=== PATIENT | female | born 1945 | race Caucasian/White ===

== ENCOUNTER 2019-11-02 21:33 | Emergency (ER) | payer MEDICARE, OTHER ==
[~2019-11-02] VITALS: Ht 167.6 cm; Wt 72.6 kg
[2019-11-02 22:22] LABS: BILIRUBIN,URINE NEGATIVE (NEGATIVE); UROBILINOGEN,URINE NORMAL (NEGATIVE)
[2019-11-02 22:34] LABS: APPEARANCE,URINE CLOUDY (CLEAR); UA COLOR STRAW (YELLOW)
[2019-11-02 23:58] VITALS: BP 163/78
--- NOTE | 2019-11-03 00:08 | NUR ---
UPDATE EDP NOTIFIED OF PATIENT COMPLAINTS, VS, AND ASSESSMENT
[2019-11-03 01:55] LABS: BASOPHIL # 0.1 10^3/uL (0.0-0.1); BASOPHIL % 0.7 % (0.0-0.2); EOSINOPHIL # 0.4 10^3/uL (0.0-0.2); HEMOGLOBIN 13.5 g/dL (12.0-15.0); LYMPHOCYTES # 2.4 10^3/uL (1.0-4.8); MEAN CELL HGB 31.5 pg (26-34); MEAN CELL HGB CONCENTRATION 33.5 g/dL (33-37); MEAN CORP VOLUME 94.2 fL (78-100); MEAN PLATELET VOLUME 10.2 fL (7.8-11.0); MONOCYTES # 0.9 10^3/uL (0.3-0.8); MONOCYTES % 9.2 % (5.0-12.0); NEUTROPHIL # 6.1 10^3/uL (1.8-7.7); NEUTROPHILS % 61.6 % (41.0-85.0); RED CELL DISTRIBUTION WIDTH 13.2 % (11.5-14.5); WHITE BLOOD CELL 9.9 10^3/uL (4.5-11.0)
[2019-11-03 01:59] LABS: CALCIUM 10.8 mg/dL (8.4-10.5); CARBON DIOXIDE 24.3 mmol/L (20.0-32)
[2019-11-03] MEDS ORDERED: CIPRO PO STA (02:16)
[2019-11-03] MEDS ORDERED: CIPRO ONE (02:19)
--- NOTE | 2019-11-03 02:21 | ER.PDOC ---
General Chief Complaint: Female Urogenital Problems Stated Complaint: POSS UTI Time seen by MD: 00:15 Source: patient Exam Limitations: no limitations History of Present Illness Initial Comments Possible UTI, burning with urination for past few days. No abdominal pain. Patient has a history of recurrent UTI. No fever or chills. Severity/Quality: moderate Associated Symptoms: dysuria Past Medical History Medical History: high cholesterol, hypertension Surgical History: no surgical history Social History Alcohol Use: none Drug Use: none Review of Systems Constitutional: no symptoms reported EENTM: no symptoms reported Respiratory: no symptoms reported Cardiovascular: no symptoms reported Genitourinary: see HPI All Other Systems: Reviewed and Negative Physical Exam General Appearance: No Apparent Distress, WD/WN Neck: nml inspection, non-tender Cardiovascular/Respiratory: Regular Rate, Rhythm, No M/R/G, Normal Peripheral Pulses, No JVD, Normal Breath Sounds, No Respiratory Distress Abdomen: Normal Bowel Sounds, Non Tender, Soft, No Organomegaly, No Pulsatile Mass Back: nml inspection Extremities: Normal Range of Motion, Non-Tender, Normal Inspection, No Pedal Edema, No Calf Tenderness, Normal Capillary Refill Neurologic/Psychiatric: general dentist II-XII NML as Tested, No Motor/Sensory Deficits, Alert, Normal Mood/Affect, Oriented x 3 Skin: Normal Color, Warm/Dry Results/Orders Results/Orders Orders - EDGAR THAPA MD Urinalysis (11/02/19 22:14) Urine Culture (11/02/19 21:55) Cbc With Auto Diff (11/03/19 01:25) Basic Metabolic Panel (11/03/19 01:25) Ciprofloxacin Hcl (Cipro) (11/03/19 02:16) Vital Signs Date Time Temp Pulse Resp B/P (MAP) Pulse Ox O2 Delivery O2 Flow Rate FiO2 11/02/19 23:58 98.2 79 18 95 11/02/19 23:58 98.2 79 18 163/78 (106) 95 Room Air 11/02/19 23:58 98.2 79 18 Laboratory Tests Test 11/02/19 21:55 11/03/19 01:30 Urine Collection Type CCMS Urine Color STRAW (YELLOW) Urine Appearance CLOUDY (CLEAR) H Urine Bilirubin NEGATIVE MG/DL (NEGATIVE) Urine Ketones NEGATIVE (NEGATIVE) Urine Specific [place] 1.015 (1.005-1.035) Urine pH 6 (5.0-6.0) Urine Protein NEGATIVE (NEGATIVE) Urine Urobilinogen NORMAL (NEGATIVE) Urine Nitrate NEGATIVE (NEGATIVE) Urine Leukocyte Esterase 500/uL 2+ (NEGATIVE) Urine Blood NEGATIVE (NEGATIVE) Urine RBC NONE SEEN RBC/HPF (NONE Urine WBC 5-10 WBC/HPF (0-2) H Urine Squamous Epithelial Cells RARE #/HPF (FEW) Urine Bacteria MANY (NONE SEEN) H Urine Glucose NORMAL (NEGATIVE) White Blood Count 9.9 10^3/uL (4.5-11.0) Red Blood Count 4.28 10^6/uL (4.00-5.20) Hemoglobin 13.5 g/dL (12.0-15.0) Hematocrit 40.3 % (36.0-46.0) Mean Corpuscular Volume 94.2 fL (78-100) Mean Corpuscular Hemoglobin 31.5 pg (26-34) Mean Corpuscular Hemoglobin Concent 33.5 g/dL (33-37) Red Cell Distribution Width 13.2 % (11.5-14.5) Platelet Count 353 10^3/uL (150-400) Mean Platelet Volume 10.2 fL (7.8-11.0) Neutrophils (%) (Auto) 61.6 % (41.0-85.0) Lymphocytes (%) (Auto) 24.0 % (24.0-44.0) Monocytes (%) (Auto) 9.2 % (5.0-12.0) Neutrophils # (Auto) 6.1 10^3/uL (1.8-7.7) Lymphocytes # (Auto) 2.4 10^3/uL (1.0-4.8) Monocytes # (Auto) 0.9 10^3/uL (0.3-0.8) H Absolute Immature Granulocyte (auto 0.05 10^3 u/L (0-2) Immature Granulocytes % 0.50 % (0.00-0.50) Eosinophils % 4.0 % (0.0-5.0) Basophils % 0.7 % (0.0-0.2) H Basophils # 0.1 10^3/uL (0.0-0.1) Eosinophil Count 0.4 10^3/uL (0.0-0.2) H Sodium Level 132 mmol/L (132-145) Potassium Level 4.3 mmol/L (3.6-5.2) Chloride Level 98.0 mmol/L (96-109) Carbon Dioxide Level 24.3 mmol/L (20.0-32) Glucose Level 112 mg/dL (70-110) H Blood Urea Nitrogen 24 mg/dL (7-18) H Creatinine 1.34 mg/dL (0.59-1.40) Calcium Level 10.8 mg/dL (8.4-10.5) H Anion Gap 14.0 Estimated GFR () 46.9 (>/=60) BUN/Creatinine Ratio 17.0 Departure Time of Disposition: 02:19 Disposition: 01 HOME, SELF-CARE Impression: Primary Impression: UTI (urinary tract infection) Condition: Stable Referrals: VADIM NIEVES MD (PCP) PRIMARY CARE PROVIDER Additional Instructions: Cipro F/U with your PCP in 2-3 days Return to ED if worsening symptoms or concerns. Duration or Time Spent with Pa: 20 mins Problem Qualifiers Primary Impression: UTI (urinary tract infection) Urinary tract infection type: site unspecified Hematuria presence: without hematuria Qualified Codes: N39.0 - Urinary tract infection, site not specified EDGAR THAPA MD Nov 03, 2019 02:21
== END 2019-11-03 02:30 | disposition home or self-care (01) ==
LOC: ER 21:33
DX: N39.0 Urinary tract infection, site not specified (principal); I10 Essential (primary) hypertension; E78.00 Pure hypercholesterolemia, unspecified; Z87.440 Personal history of urinary (tract) infections
CPT/HCPCS: 36415; 80048; 81000; 85025; 87077; 87086; 87186; 99284

== ENCOUNTER → 2020-10-26 | Outpatient (CLI) | payer MEDICARE, OTHER ==
[2020-10-26 14:27] LABS: BASOPHIL % 0.6 % (0.0-0.2); EOSINOPHIL % 0.8 % (0.0-5.0); LYMPHOCYTES # 0.95 10^3/uL1 (1.0-4.8); MEAN CORP HGB 31.1 pg (26-34); MONOCYTES # 0.6 10^3/uL (0.3-0.8); MONOCYTES % 13.5 % (5.0-12.0); NEUTROPHIL # 3.1 10^3/uL (1.8-7.7); NEUTROPHILS % 64.7 % (41.0-85.0); PLATELET COUNT 191 10^3/uL (150-400); RED CELL DISTRIBUTION WIDTH 13.1 % (11.5-14.5)
[2020-10-26 15:15] LABS: ALANINE AMINOTRANSFERASE(ML) 32 U/L (12-78); ALKALINE PHOSPHATASE 80 U/L (50-136); ASPARTATE AMINO TRANSFERASE 66 U/L (0-35); CALCIUM 9.4 mg/dL (8.4-10.5); GLUCOSE 79 mg/dL (70-110)
== END | disposition home or self-care (01) ==
LOC: LAB 14:09
PROVIDERS: ATTEND Specialist
DX: E11.9 Type 2 diabetes mellitus without complications (principal); R05 Cough; R50.9 Fever, unspecified
CPT/HCPCS: 36415; 80053; 82728; 83036; 83615; 84145; 84484; 85025; 86140

== ENCOUNTER 2020-12-04 11:09 | Inpatient (IN) | payer MEDICARE, OTHER ==
[~2020-12-04] VITALS: Ht 167.6 cm; Wt 72.1 kg
[2020-12-04] VITALS (40 sets, daily range): BP systolic 64–158; BP diastolic 30–97
[~2020-12-04 11:09] MED LIST: ALLO100T PO; APIX2.5T PO; ASCO500T5 PO; CHOL500045 PO; DEXA4TAB PO; FENO145T PO; HNS 1000ML 1,000 ML ONE; LEVO25TA4 PO; LOSA50TA2 PO; Magnesium Oxide PO; NS 1000ML 1,000 ML ONE; NS 250ML 250 ML IV ONE; ROSU10TA2 PO; VALIUM PO ONE; VANCOMYCIN HCL 1 GM ONE; ZINC220C7 PO
--- NOTE | 2020-12-04 11:31 | PCM.EKG ---
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
[2020-12-04] MEDS: NS 1000ML 1,000 ML IV SCH ×2 (11:40→15:10)
[2020-12-04] MEDS ORDERED: GLIM2TAB7 PO (11:48)
[2020-12-04] MEDS ORDERED: ICOS1CAP PO (11:48)
[2020-12-04] MEDS ORDERED: PANT40TA6 PO (11:48)
[2020-12-04] MEDS ORDERED: ROSU20TA2 PO (11:48)
[2020-12-04] MEDS ORDERED: LOSA1TAB25 PO (11:48)
[2020-12-04] MEDS ORDERED: ALLO100T PO (11:48)
[2020-12-04] MEDS ORDERED: MAGN400T9 PO (11:48)
[2020-12-04] MEDS ORDERED: CYAN-26 PO (11:48)
[2020-12-04] MEDS ORDERED: AMLO-169 PO (11:48)
[2020-12-04] MEDS ORDERED: ACET500T73 PO (11:48)
[2020-12-04] MEDS ORDERED: METF500T17 PO (11:48)
[2020-12-04] MEDS ORDERED: ASPI-667 PO (11:48)
[2020-12-04] MEDS ORDERED: METO25TA4 PO (11:48)
[2020-12-04] MEDS ORDERED: UBID100C23 PO (11:48)
--- NOTE | 2020-12-04 11:49 | HPH ---
ADMIT DATE: 12/04/2020 CHIEF COMPLAINT: Recurrent dizziness, syncope, occasional palpitation, underlying sick sinus syndrome and AV rachelle block. HISTORY OF PRESENT ILLNESS: The patient is a 75-year-old white female who has underlying history of hypertension, hypothyroidism, non-insulin dependent diabetes mellitus and she has seen a automotive detailer in [place] over 6-8 weeks ago and she was told that she needed a pacemaker because of Holter monitoring manifestations of symptomatic bradycardia and has sick sinus syndrome with underlying intermittent junctional rhythm and SA Wenckebach and then subsequently she developed COVID pneumonia and was in the hospital and in the hospital, she was manifesting similar bradycardia and now she is over the COVID quarantine. Came for a myocardial perfusion scan on 12/03/2020 and during the procedure, she showed initially sinus bradycardia, SA Wenckebach and then went into complete AV dissociation with accelerated AV junctional rhythm with a rate of 70-75 and she became very symptomatic and dizzy and lightheaded and this is the way she has felt in the past. Actually even in the recovery phase, she stayed in junctional rhythm. Hence, in view of her manifestations suggestive of symptomatic sick sinus syndrome and AV rachelle disease with accelerated junctional rhythm, the patient was advised to have a pacer because of symptomatic status. She has moderately severe hypertension and diabetes. ALLERGIES: None known. MEDICATIONS: She is on metoprolol 25 mg once a day, amlodipine 5 mg once a day, losartan/hydrochlorothiazide 100/12.5 one tablet daily, zinc 220 mg once a day, vitamin D3 2000 units daily, vitamin C 1 gram daily, Vascepa 2 grams daily, glimepiride 2 mg once a day, magnesium oxide 400 mg 1 tablet twice a day, Protonix 40 mg once a day, Levothroid 25 mcg once a day, Crestor 10 mg once a day, allopurinol 100 mg once a day, metformin 500 mg twice a day. 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 See my office note for the details. SOCIAL HISTORY: Nonsmoker, no ethanol abuse. FAMILY HISTORY: Mother had heart trouble bypass and stroke. Father is hypertensive. PAST SURGICAL HISTORY: Hysterectomy, bladder suspension operation, cholecystectomy for a large stone in 03/2018. REVIEW OF SYSTEMS: Dizziness, lightheadedness, near syncopal episodes on multiple occasions, recent COVID manifestations with shortness of breath and went to home on oxygen and she has not been using oxygen now and the saturation is normal. PHYSICAL EXAMINATION: GENERAL: She is alert, awake, oriented. VITAL SIGNS: Temperature 97, 140/80 blood pressure, pulse was 47-50, respirations 18, 5 feet 6 inches, 156 pounds, BMI of 25.2. Saturation was 93% on room air. HEENT: Unremarkable. NECK: No JVD. Right carotid bruit. Upstroke was normal. LUNGS: Clear. HEART: Sounds normal. ABDOMEN: Soft, nontender, no organomegaly. EXTREMITIES: Distal pulses fairly well felt. NEUROLOGIC: Intact. IMAGING STUDIES: EKG: Regular sinus rhythm, which was done in the office earlier on 11/30/2020 and had left bundle branch block and nonspecific ST-T wave changes. IMPRESSION: Symptomatic sick sinus syndrome, AV rachelle disease, accelerated junctional rhythm, hypertension, diabetes. PLAN: At this time, cardiac DDD pacer inserted today. We will admit her in ICU after the pacer. Kalyn Armstrong MD DR: WESTLEY/krunal JOB# [id number]
[2020-12-04 11:51] LABS: BASOPHIL # 0.1 10^3/uL (0.0-0.1); EOSINOPHIL # 0.4 10^3/uL (0.0-0.2); EOSINOPHIL % 4.5 % (0.0-5.0); LYMPHOCYTES # 2.04 10^3/uL1 (1.0-4.8); MEAN CORP HGB 31.1 pg (26-34); MONOCYTES # 0.9 10^3/uL (0.3-0.8); MONOCYTES % 9.5 % (5.0-12.0); NEUTROPHIL # 5.7 10^3/uL (1.8-7.7); PLATELET COUNT 362 10^3/uL (150-400); RED CELL DISTRIBUTION WIDTH 13.4 % (11.5-14.5)
[2020-12-04] MEDS ORDERED: LIDOCAINE 2% VIAL ONE ×2 (12:54→13:03)
[2020-12-04] MEDS ORDERED: ZOFRAN ONE ×2 (12:54→15:53)
[2020-12-04] MEDS ORDERED: PEPCID IV ONE (12:54)
[2020-12-04] MEDS ORDERED: SUBLIMAZE ONE (12:55)
[2020-12-04] MEDS ORDERED: DECADRON ONE (12:55)
[2020-12-04] MEDS ORDERED: VERSED ONE (12:55)
[2020-12-04] MEDS ORDERED: KETAMINE HCL-Non-Preferred ONE (12:55)
[2020-12-04] MEDS ORDERED: DIPRIVAN IV ONE (12:55)
[2020-12-04] MEDS ORDERED: EPHEDRINE SULFATE ONE (12:56)
[2020-12-04] MEDS ORDERED: HNS 1000ML 1,000 ML IV SCH (13:00)
[2020-12-04] MEDS ORDERED: VANCOMYCIN HCL 1 GM in NS 250ML 250 ML IV ONE (13:00)
[2020-12-04] MEDS ORDERED: SODIUM CHLORIDE IRR BOTTLE IR ONE (13:02)
[2020-12-04] MEDS ORDERED: GENTAMICIN 80 MG/NS 100 ML PB 100 ML IV ONE (13:02)
[2020-12-04 13:07] LABS: CALCIUM 9.9 mg/dL (8.4-10.5); CARBON DIOXIDE 24.2 mmol/L (20.0-32)
[2020-12-04] MEDS ORDERED: TYLENOL PO PRN (15:00)
[2020-12-04] MEDS ORDERED: RESTORIL PO PRN (15:00)
[2020-12-04] MEDS ORDERED: NORCO 5MG PO PRN (15:00)
[2020-12-04] MEDS ORDERED: D5W-1/2 NS/KCL 20MEQ 1,000 ML IV SCH (15:00)
[2020-12-04] MEDS ORDERED: SUBLIMAZE IV PRN (15:00)
[2020-12-04] MEDS ORDERED: MAGNESIUM SULFATE 50 ML IV ONE (15:00)
--- NOTE | 2020-12-04 15:11 | DIREP ---
PROCEDURE:CHEST 1 VIEW COMPARISON:[facility], CR, XRAY CHEST SINGLE VW, 10/30/2020, 11:16 AM. [facility], CR, XRAY CHEST 2 VWS, 12/25/2018, 10:24 AM. INDICATIONS:pacemaker insertion FINDINGS: LUNGS/PLEURA:Diffuse interstitial pattern of opacity in the bilateral lungs with slight perihilar predominance. Findings may be on the basis of edema. Please correlate clinically. No focal consolidation is seen. Costophrenic angles are sharp. No pneumothorax. VASCULATURE:Mild prominence of the perihilar vasculature which may be on the basis of congestion. CARDIAC:Cardiac silhouette is top normal in size for technique. MEDIASTINUM:Midline in position. BONES:No aggressive osseous lesions. OTHER:New left upper chest cardiac pacer with subclavian approach leads terminating over the right atrium and right ventricle. CONCLUSION: 1. New left upper chest cardiac pacer with subclavian approach leads terminating over the right atrium and right ventricle. No pneumothorax. 2. Mild diffuse interstitial pattern of opacity perihilar predominance. Findings may be seen in setting of edema. Please correlate clinically. In addition there is mild prominence of the perihilar vasculature which may be on the basis of congestion. Dictated by: Ramin Hendricks MD on 12/04/2020 at 03:08 PM
[2020-12-04] MEDS ORDERED: NS 1000ML 1,000 ML ONE (15:26)
[2020-12-04] MEDS ORDERED: ZOFRAN ODT ONE (15:53)
--- NOTE | 2020-12-04 17:12 | OPH ---
DATE OF SURGERY: 12/04/2020 PERMANENT PACEMAKER REPORT A 75-year-old female. PREOPERATIVE DIAGNOSES: Sick sinus syndrome with symptomatic sinus bradycardia, SA pauses, junctional rhythm, total AV dissociation, intermittent left bundle-branch block, syncope of recurrent nature, hypertension, normal myocardial perfusion scan. POSTCATHETERIZATION DIAGNOSES: Sick sinus syndrome with symptomatic sinus bradycardia, SA pauses, junctional rhythm, total AV dissociation, intermittent left bundle-branch block, syncope of recurrent nature, hypertension, normal myocardial perfusion scan. ANESTHESIA: 2% lidocaine. PREOPERATIVE MEDICATIONS: Fentanyl 35 mcg IV and Valium 2.5 mg p.o., TIVA anesthesia during surgery. ANTIBIOTIC PROPHYLAXIS: Vancomycin 1 gram IV piggyback during the procedure. DEVICE IMPLANTED: Morgan COWAN reference #227765, serial number [id number], Biotronik device. Lead implant is right atrial preformed J passive Solia JT 45 cm, reference #533530, serial #[id number], Biotronik lead. Ventricular lead is passive tined lead Biotronik lead Solia T53, reference #960448, serial #[id number]. STIMULATION THRESHOLD: Right atrium is 2.7 millivolt P-wave, 0.4 volt threshold, 0.4 milliseconds, 653 ohms; in the ventricle, 10.3 millivolt, R-wave with 0.4 volt threshold at 0.4 milliseconds, pulse width impedance 1014 ohms. Device is programmed to DDR mode, lower rate 60, upper rate is 130, upper sense rate is 120, AV delay 180 milliseconds paced and 140 milliseconds sensed with the AV search hysteresis. Right atrium is set at 3.6 volt amplitude, right ventricle is already set at 4.8 volt amplitude at 0.4 milliseconds pulse width both in the atrium and the ventricle. Atrial sensitivity is set at 0.4 millivolts, ventricular sensitivity set at 2.5 millivolts. Atrial refractory period at 250 milliseconds. Ventricular refractory period 250 milliseconds. Sensing pacing is both in bipolar mode. NARRATION OF PROCEDURE: After premedication and complete surgical asepsis, 2% local anesthesia instilled in the left infraclavicular region and left subclavian vein was punctured percutaneously and a guidewire was passed into the right side of the heart and through the guidewire with 7-Andorran tear-off sheath was introduced and through the sheath, another guidewire was introduced and 2 separate 7-Andorran sheaths were introduced over both guidewires and the stylets were removed and ventricular and atrial leads were positioned into both sheaths and right ventricular lead was positioned in the right ventricular apex more close to the septum with a narrow QRS noted on pacing. Good radiological stability of the lead was established. Atrial lead was a preformed J passive lead, which was positioned into the right atrial appendage and good stability of the lead was established. Subsequently, a subcutaneous pocket was made in the left infraclavicular region and both leads were anchored to the base of the pocket and both leads connected to the device and hemostasis achieved. Plasma knife was used for cutting and hemostasis after both leads were anchored and they were connected to the device. Garamycin irrigation of pocket was done. No bleeding spots were noted. The pocket was closed with interrupted subcutaneous sutures, followed by application of metal bozena to the skin. The patient tolerated the procedure well and brought to ICU for initial 24-hour observation. Kalyn Armstrong MD DR: EWSTLEY/krunal JOB# [id number]
[2020-12-04] MEDS: NS 1000ML/KCL 20MEQ 1,000 ML IV SCH ×2 (18:00→22:40)
--- NOTE | 2020-12-04 18:26 | PCM.EKG ---
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
--- NOTE | 2020-12-04 18:40 | NUR ---
TELEPHONE REPORT RECEIVED FROM KEANU MARSHALL RN. ASSUMED PT CARE. PT NOTED TO BE RESTING IN BED COMFORTABLY WITH HOB LESS THAN DEGREES. Addendum: 12/05/20 at 0656 by Blu Kruger RN RN VERBAL REPORT
--- NOTE | 2020-12-04 20:00 | NUR ---
ASSESSMENT COMPLETED. PT IS ALERT AND ORIENTED AND IN GOOD SPIRITS. PT IS S/P INITIAL PACEMAKER INSERTION - 12/04/2020. INCISION TO LT UPPER CHEST COVERED WITH DRESSING THAT IS CDI. LT ARM IMMOBILIZED IN SLING. PT EDUCATED ON IMPORTANCE OF KEEPING LEFT ARM IMMOBILIZED, TO LAY ON BACK, TO KEEP HOB ELEVATED BELOW 45 DEGREES AND TO PERFORM ROM TO LOWER EXTREMITIES. PT VERBALIZED UNDERSTANDING ON ALL THE ABOVE. ALL VSS AND WNL. PT IS ON O2 VIA NC @ 2LPM. 20G IV SITE TO RT FA WITH IVF INFUSING. SITE IS PATENT WITH NO S/S OF INFILTRATION OR SWELLING. PT DENIES ANY PAIN OR NEEDS AT THIS TIME. CALL LIGHT AND TABLE WITHIN REACH. BED IN LOW POSITION, LOCKED, SIDE RAILS UP X2 AND HOB ELEVATED. WILL CONTINUE TO MONITOR.
--- NOTE | 2020-12-04 20:05 | NUR ---
TELEPHONE ORDER PER DR NIEVES FOR STAT CBC AND CMP DUE HYPOTENSION. TO RBGRECIA.
[2020-12-04] MEDS ORDERED: CRESTOR PO ONE (20:51)
[2020-12-04] MEDS ORDERED: LOPRESSER PO SCH (21:00)
[2020-12-04] MEDS ORDERED: TYLENOL PO SCH (21:00)
[2020-12-04] MEDS ORDERED: ZYLOPRIM PO SCH (21:00)
[2020-12-04] MEDS ORDERED: PROTONIX PO SCH (21:00)
[2020-12-04] MEDS ORDERED: MAG-OX PO SCH (21:00)
[2020-12-04] MEDS ORDERED: CRESTOR PO SCH (21:00)
[2020-12-04 21:11] LABS: BASOPHIL % 0.3 % (0.0-0.2); EOSINOPHIL % 0.2 % (0.0-5.0); LYMPHOCYTES # 0.69 10^3/uL1 (1.0-4.8); LYMPHOCYTES % 6.2 % (24.0-44.0); MEAN CORP HGB 31.5 pg (26-34); MONOCYTES # 0.1 10^3/uL (0.3-0.8); MONOCYTES % 0.9 % (5.0-12.0); NEUTROPHIL # 10.3 10^3/uL (1.8-7.7); NEUTROPHILS % 91.9 % (41.0-85.0); PLATELET COUNT 277 10^3/uL (150-400); RED CELL DISTRIBUTION WIDTH 13.2 % (11.5-14.5)
--- NOTE | 2020-12-04 21:23 | NUR ---
DR NIEVES AT BEDSIDE. TRUDI SUAZO AT BEDSIDE PERFORMING ECHO. PER MD TO CONTINUE PLAN OF CARE. PT DENIES ANY NEEDS OR PAIN AT THIS TIME. WILL CONTINUE TO MONITOR.
[2020-12-04 21:34] LABS: CALCIUM 9.7 mg/dL (8.4-10.5); CARBON DIOXIDE 21.1 mmol/L (20.0-32)
--- NOTE | 2020-12-04 21:40 | NUR ---
VERBAL ORDER PER DR NIEVES TO ENCOURAGE ORAL FLUID INTAKE. PT VERBALIZED UNDERSTANDING.
[2020-12-04] MEDS ORDERED: ROCEPHIN IV STA (22:07)
[2020-12-04] MEDS ORDERED: NS 100ML 100 ML IV ONE (22:20)
[2020-12-04] MEDS ORDERED: ROCEPHIN ONE (22:21)
[2020-12-04 22:27] LABS: LYMPHOCYTE 1 % (25-36); MONOCYTE 1 % (3-9); SEGMENTED NEUTROPHILS 98 % (31-76)
[2020-12-04] MEDS ORDERED: ROCEPHIN 1,000 MG in NS 100ML 100 ML IV SCH (22:30)
[2020-12-04] MEDS ORDERED: HUMALOG SQ ONE (22:30)
[2020-12-05] VITALS (47 sets, daily range): BP systolic 79–142; BP diastolic 36–75
[2020-12-05 01:30] LABS: APPEARANCE,URINE CLEAR (CLEAR); BILIRUBIN,URINE NEGATIVE (NEGATIVE); UA COLOR YELLOW (YELLOW); UROBILINOGEN,URINE 0.2 (NEGATIVE)
--- NOTE | 2020-12-05 04:01 | NUR ---
HYPOTENSIVE: PT BP NOTED TO BE HYPOTENSIVE. PT IS ASYMPTOMATIC AND REPORTS FEELING "OK". DR NIEVES NOTIFIED. NO NEW ORDERS. TO CONTINUE MONITORING PATIENT. CALL LIGHT AND TABLE WITHIN REACH. BED IN LOW POSITION, LOCKED, SIDE RAILS UPX2. WILL CONTINUE TO MONITOR.
[2020-12-05] MEDS ORDERED: LEVOTHYROXINE SODIUM PO SCH (06:30)
--- NOTE | 2020-12-05 06:43 | NUR ---
REPORT TO ONCOMING SHIFT. PT CARE RELINQUISHED.
[2020-12-05] MEDS ORDERED: ASPIRIN ONE (07:37)
[2020-12-05] MEDS ORDERED: AMARYL ONE (07:37)
[2020-12-05] MEDS ORDERED: VITAMIN D ONE (07:38)
[2020-12-05] MEDS: HUMALOG SQ SCH ×2 (08:00→12:54)
[2020-12-05] MEDS: NS 1000ML/KCL 20MEQ 1,000 ML IV SCH (08:16)
[2020-12-05] MEDS ORDERED: VITAMIN D PO SCH (09:00)
[2020-12-05] MEDS ORDERED: ASPIRIN PO SCH (09:00)
[2020-12-05] MEDS ORDERED: AMARYL PO SCH (09:00)
--- NOTE | 2020-12-05 12:07 | NUR ---
ORTHOSTATIC BP LAYING 106/74 HR 66 SITTING 121/60 STANDING 93/55 PATIENT INSTRUCTED TO BE SURE THAT SHE DANGLES/SITS FOR A LITTLE BIT WHEN CHANGING POSITIONS TO PREVENT DIZZINESS AND FALLS. PATIENT VOICED UNDERSTANDING.
--- NOTE | 2020-12-05 12:14 | NUR ---
DR. NIEVES AT BEDSIDE ASSESSING PATIENT AND DISCUSSED DISCHARGING HOME. PATIENT AND SPOUSE AGREED TO GO HOME AND F/U WITH DR. NIEVES ON MONDAY AND MONDAY OF NEXT WEEK.
[2020-12-05] MEDS ORDERED: MAGN400T9 PO (13:24)
--- NOTE | 2020-12-05 14:11 | DSH ---
DATE OF DISCHARGE: 12/05/2020 FINAL DIAGNOSES: Sick sinus syndrome, AV rachelle block with symptomatic bradycardia with a left bundle branch block, hypertension, hypertensive heart disease, non-insulin dependent diabetes mellitus, post-COVID pneumonia, residual pulmonary infiltrates and mild hypoxemia, postural hypotension, probably anesthesia related. Please refer to my history and physical to the point of my impression. HOSPITAL COURSE: The patient is a 75-year-old white female who 4 weeks ago had COVID pneumonia with hypoxemia and received remdesivir, dexamethasone and she was manifesting SA Wenckebach with sinus bradycardia and symptomatic bradycardia was noted. She has been already evaluated by [place] advice line rn over a month ago and was told that she probably requires a pacer at some point in time and subsequently she came for a Lexiscan myocardial perfusion scan in the office on 12/03/2020 and she was showing significant bradycardia, rate 45-47 with SA Wenckebach and accelerated junctional rhythm with dizziness, lightheadedness and felt very poorly and she was scheduled for DDD pacer on 12/04/2020 and she was taken to the OR and a Biotronik AV sequential device was inserted without any complications and the thresholds were excellent and this morning, threshold showed the patient had 0.3 volt threshold in the atrium and less than 1 volt in the ventricle with good impedances, stable impedances and R and P-wave sensitivity of 4 millivolts P-wave and around 10 millivolt R-wave and impedances were also stable and she has felt well, but during the night, became hypotensive and had a good urine output and not required her blood pressure medicine, probably the combination effect of anesthesia and some degree of acute kidney injury because she was slightly hypotensive in the OR, also creatinine is 1.5, magnesium was 1.4, 2 grams of magnesium IV was given, followed by magnesium 400 mg twice a day. This morning, her wound looks clean. She is feeling much better. She had postural hypotension with 120/70 blood pressure in lying position and standing position 90/50, but she ambulated well and was discharged today on Keflex 500 mg 3 times a day for 6 days along with Tylenol 1 gram twice a day if needed for pain, allopurinol 100 mg once a day, aspirin 81 mg once a day, vitamin D3 5000 units daily and vitamin B12 1000 mcg once a day, glimepiride 2 mg once a day, Levothroid 25 mcg once a day, metformin 500 mg twice a day, Protonix 40 mg once a day, Crestor 20 mg once a day and I did stop her amlodipine and Vascepa, losartan, HCT and metoprolol because her blood pressures are relatively low and she will come to the office on 12/08/2020 for wound check. Keflex will be called in. Instructions about the device given to the patient and she overall has much improved. Laxmichand MD Patti DR: WESTLEY/krunal JOB# [id number]
--- NOTE | 2020-12-05 19:05 | ECHO ---
DATE OF SERVICE: 12/05/2020 LIMITED ECHO STUDY The patient is a 75-year-old female post DDD pacer and insertion for symptomatic bradycardia with sick sinus syndrome and heart block and underlying left bundle branch block and post-device insertion had hypotension, was documented at 70/40. Emergency echo was done to make sure that she does not have any pericardial effusion to suggest possibility of perforation and the patient's study was of suboptimal study, mostly done from substernal view and she was lying flat in bed and clinically she was stable except of relative low blood pressure. She was warm and dry, but based on the limited study, there was no evidence of any pericardial effusion. Anterior echo free space is noted, which is probably related to fat pad, but the left ventricle appeared to be normal with left ventricular hypertrophy, septum thicker than the posterior wall. Overall, left ventricular contractility was intact with 70% ejection fraction. Right ventricle was normal in size. Aorta appears to be normal with adequate opening of the aortic valve and mitral valve and left atrium is mildly enlarged and ejection fraction of at least 70%. Hence, there was no evidence of any pericardial effusion and left ventricular hypertrophy with grade 1 diastolic dysfunction with no signs of any cardiac compromise noted at this time. Kalyn Armstrong MD DR: WESTLEY/krunal JOB# [id number]
== END 2020-12-05 13:50 | disposition home or self-care (01) | DRG 243 ==
LOC: SDC 11:09 → ICU 15:25
PROVIDERS: ADMIT Specialist; ATTEND Specialist
PROC: 02HK3JZ Insertion of Pacemaker Lead into Right Ventricle, Percutaneous Approach (ICD-10-PCS; 2020-12-04)
PROC: 02H63JZ Insertion of Pacemaker Lead into Right Atrium, Percutaneous Approach (ICD-10-PCS; 2020-12-04)
PROC: 0JH606Z Insertion of Pacemaker, Dual Chamber into Chest Subcutaneous Tissue and Fascia, Open Approach (ICD-10-PCS; principal; 2020-12-04 13:22)
DX: I49.5 Sick sinus syndrome (principal); I44.2 Atrioventricular block, complete; N17.9 Acute kidney failure, unspecified; E03.9 Hypothyroidism, unspecified; E11.9 Type 2 diabetes mellitus without complications; E78.5 Hyperlipidemia, unspecified; I11.9 Hypertensive heart disease without heart failure; I44.7 Left bundle-branch block, unspecified; I95.1 Orthostatic hypotension; R09.02 Hypoxemia; G62.9 Polyneuropathy, unspecified; Z86.16 Personal history of COVID-19; I95.9 Hypotension, unspecified; K21.9 Gastro-esophageal reflux disease without esophagitis; Z79.899 Other long term (current) drug therapy; Z82.3 Family history of stroke; Z79.84 Long term (current) use of oral hypoglycemic drugs; Z90.710 Acquired absence of both cervix and uterus; Z79.82 Long term (current) use of aspirin
CPT/HCPCS: 36415; 71045; 76000; 80053; 81003; 82948; 83735; 85025; 85610; 93005; 93321; A4217; C1785; C1898; G0378; J0696; J1100; J2001; J2250; J2405; J3010; J3370; J3475; J3490; J7030; J7050; J7070; C1769; J1580

== ENCOUNTER → 2020-12-30 | Outpatient (CLI) | payer MEDICARE, OTHER ==
[~2020-12-30] MED LIST changes: +ACET500T73 PO; +AMLO-169 PO; +ASPI-667 PO; +CYAN-26 PO; +GLIM2TAB7 PO; -HNS 1000ML 1,000 ML ONE; +ICOS1CAP PO; +LOSA1TAB25 PO; +MAGN400T9 PO; +METF500T17 PO; +METO25TA4 PO; -NS 1000ML 1,000 ML ONE; -NS 250ML 250 ML IV ONE; +PANT40TA6 PO; +ROSU20TA2 PO; +UBID100C23 PO; -VALIUM PO ONE; -VANCOMYCIN HCL 1 GM ONE
--- NOTE | 2020-12-30 14:02 | DIREP ---
PROCEDURE:US DOPPLER CAROTID BILATERAL COMPARISON:None. INDICATIONS:CAROTID BRUITS TECHNIQUE:Sonographic evaluation of carotid arteries was performed together with grayscale, color-flow, and spectral analysis. FINDINGS: PEAK FLOW VELOCITIES (cm/sec) RIGHT CCA: PROX:66.0 cm/s DIST:77.6 cm/s RIGHT BULB: 153.6 cm/s RIGHT ICA: PROX:208.3 cm/s MID:96.5 cm/s DIST:91.9 cm/s RIGHT ECA:92.7 cm/s RIGHT ICA/CCA:2.7 RIGHT VERTEBRAL:35.4 cm/s; Antegrade IMAGES:There is marked calcified plaque. LEFT CCA: PROX:90.1 cm/s DIST:77.6 cm/s LEFT BULB:124.3 cm/s LEFT ICA: PROX:131.8 cm/s MID:78.7 cm/s DIST:83.1 cm/s LEFT ECA:82.6 cm/s LEFT ICA/CCA:1.7 LEFT VERTEBRAL:53.1 cm/s; Antegrade IMAGES:There is marked calcified plaque. CONCLUSION:Increased Doppler velocity within the right carotid bulb, right internal carotid artery and left internal carotid artery, consistent with 50-69% stenosis. Marked calcified plaque bilaterally. Diameter Stenosis (%)ICA Peak Systolic Velocity (cm/s)ICA/CCA RatioNormal<125<2.0<50<125<[id number]>2-470 to near occlusion>230>4J Ultrasound Med 2005; 24:6714-0020 Dictated by: JULIANO Physician on 12/30/2020 at 01:44 PM ac
== END | disposition home or self-care (01) ==
LOC: RAD 11:00
PROVIDERS: ATTEND Specialist
DX: I65.23 Occlusion and stenosis of bilateral carotid arteries (principal)
CPT/HCPCS: 93880

== ENCOUNTER → 2020-12-31 | Outpatient (CLI) | payer MEDICARE, OTHER ==
--- NOTE | 2020-12-31 19:34 | DIREP ---
PROCEDURE:CTA NECK COMPARISON:[facility], , [place] DOPPLER CAROTID BILATERAL, 12/30/2020, 11:13 AM. INDICATIONS:RIGHT CAROTID BRUIT, ABNORMAL CAROTID DOPPLAR TECHNIQUE:After obtaining the patient's consent, CTA images of the neck were obtained without and with non-ionic intravenous contrast material. Multi-planar reformatted/3-D images were created to optimize visualization of vascular anatomy. FINDINGS: AORTIC ARCH:Normal configuration. RIGHT CAROTID SYSTEM:Calcified plaque proximal ICA with stenosis measuring up to approximately 28%. Calcified plaque at the ICA origin with approximate 65% stenosis. LEFT CAROTID SYSTEM:Soft plaque at the ICA origin/carotid bulb with approximate 65% stenosis. Calcified plaque proximal left ICA with approximate 45% stenosis. VERTEBRAL ARTERIES: Unremarkable. NECK TISSUES:Enhancing mass at the left carotid bifurcation measures 9 mm in AP, 10 mm in transverse and 18 mm in cephalocaudal dimensions consistent with a carotid body tumor. LUNGS:Unremarkable. MEDIASTINUM:Unremarkable. BONE:Degenerative changes at C5-6 and C6-7 with foraminal and spinal stenosis. CONCLUSION: 1. Bilateral plaque with significant stenoses at the bilateral ICAs as detailed above. 1. Left carotid body tumor. Dictated by: Jose Luis Drummond M.D. on 12/31/2020 at 07:21 PM
== END | disposition home or self-care (01) ==
LOC: RAD 15:17
PROVIDERS: ATTEND Specialist
DX: I65.23 Occlusion and stenosis of bilateral carotid arteries (principal); D44.6 Neoplasm of uncertain behavior of carotid body; R09.89 Other specified symptoms and signs involving the circulatory and respiratory systems
CPT/HCPCS: 70498; Q9965

== ENCOUNTER 2021-02-22 16:51 | Observation (INO) | payer MEDICARE, OTHER ==
[~2021-02-22] VITALS: Ht 167.6 cm; Wt 72.1 kg
[2021-02-22 17:38] VITALS: BP 141/59
[2021-02-22] MEDS ORDERED: SUBLIMAZE ONE (17:50)
[2021-02-22] MEDS ORDERED: ATIVAN PO STA (17:51)
[2021-02-22] MEDS ORDERED: ZOSYN 3.375 GM 3.375 GM in NS 100ML 100 ML IV SCH (18:00)
[2021-02-22] MEDS ORDERED: DEXTROSE 50%-WATER SYRINGE IV PRN (18:00)
[2021-02-22] MEDS ORDERED: ZITHROMAX 500 MG in NS 250ML 250 ML IV SCH ×2 (18:00→23:00)
[2021-02-22] MEDS ORDERED: LOSA1TAB25 PO (18:07)
[2021-02-22] MEDS ORDERED: ASCO500C9 PO (18:17)
[2021-02-22] MEDS ORDERED: ICOS1CAP PO (18:19)
[2021-02-22] MEDS ORDERED: CYAN25002 SL (18:25)
[2021-02-22] MEDS ORDERED: ROSU10TA2 PO (18:27)
--- NOTE | 2021-02-22 18:40 | NUR ---
REPORT REPORT TO ONCOMING SHIFT
[2021-02-22 18:49] LABS: BASOPHIL # 0.1 10^3/uL (0.0-0.1); BASOPHIL % 0.4 % (0.0-0.2); EOSINOPHIL # 0.6 10^3/uL (0.0-0.2); EOSINOPHIL % 4.9 % (0.0-5.0); LYMPHOCYTES # 1.46 10^3/uL1 (1.0-4.8); LYMPHOCYTES % 12.9 % (24.0-44.0); MEAN CORP HGB 30.9 pg (26-34); MONOCYTES # 0.9 10^3/uL (0.3-0.8); MONOCYTES % 7.7 % (5.0-12.0); NEUTROPHIL # 8.3 10^3/uL (1.8-7.7); NEUTROPHILS % 73.5 % (41.0-85.0); PLATELET COUNT 250 10^3/uL (150-400); RED CELL DISTRIBUTION WIDTH 12.9 % (11.5-14.5)
--- NOTE | 2021-02-22 19:03 | DIREP ---
PROCEDURE:CHEST 2 VIEWS COMPARISON:[facility], CR, XRAY CHEST 2 VWS, 12/25/2018, 10:24 AM. [facility], CR, XRAY CHEST SINGLE VW, 12/04/2020, 02:48 PM. INDICATIONS:pneumonia FINDINGS: LUNGS/PLEURA:No significant pulmonary parenchymal abnormalities. No effusions. VASCULATURE:Normal. Unremarkable pulmonary vasculature. CARDIAC:Normal heart size. Implanted dual lead pacing device over left upper chest. MEDIASTINUM:Normal. No visible mass or adenopathy. BONES:No acute pathology. OTHER:Negative. CONCLUSION:Cardiac pacing device noted. No evidence of pulmonary infiltrate or pleural effusion. Heart size is within normal limits for technique. Dictated by: Rubens Buchanan M.D. on 02/22/2021 at 07:00 PM
[2021-02-22 19:08] LABS: CALCIUM 9.3 mg/dL (8.4-10.5); CARBON DIOXIDE 26.2 mmol/L (20.0-32)
[2021-02-22 19:24] LABS: ABG PCO2 34.1 mmHg (35.0-45.0); ABG PH 7.467 (7.350-7.450); BE(B) 0.9 mmol/L (-2.0-2.0); HCO3act 24.1 mmol/L (22.0-26.0); pO2 62.5 mmHg (80.0-100.0)
[2021-02-22] MEDS ORDERED: NS 100ML 100 ML IV ONE (20:18)
[2021-02-22 20:34] VITALS: BP 164/66
[2021-02-22] MEDS ORDERED: XOPENEX IH ONE (20:34)
[2021-02-22] MEDS: XOPENEX IH SCH (20:49)
[2021-02-22] MEDS: NS 1000ML/KCL 20MEQ 1,000 ML IV SCH (20:58)
[2021-02-22] MEDS: MAG-OX PO SCH (20:58)
[2021-02-22] MEDS: HUMALOG SQ SCH (21:07)
--- NOTE | 2021-02-22 22:00 | NUR ---
ELEVATED D DIMER DR NIEVES NOTIFIED OF ELEVATED D DIMER OF 4.06, DR NIEVES SAID TO MESSAGE HIM WITH COVID RESULTS WHEN THEY RESULT.
[2021-02-22] MEDS ORDERED: NS 250ML 250 ML IV ONE (22:10)
[2021-02-22] MEDS: SOLU-MEDROL IV SCH (22:24)
--- NOTE | 2021-02-22 23:55 | NUR ---
COVID RESULTS MESSAGED DR NIEVES WITH COVID RESULTS REQUESTED
[2021-02-23] VITALS (7 sets, daily range): BP systolic 100–144; BP diastolic 50–63
[2021-02-23] MEDS: XOPENEX IH SCH ×3 (03:00→14:49)
[2021-02-23] MEDS ORDERED: NS 100ML 100 ML IV ONE (03:05)
[2021-02-23] MEDS ORDERED: XOPENEX IH ONE (03:06)
[2021-02-23] MEDS: ZOSYN 3.375 GM 3.375 GM in NS 100ML 100 ML IV SCH ×3 (03:13→14:54)
[2021-02-23] MEDS: NS 1000ML/KCL 20MEQ 1,000 ML IV SCH ×2 (04:00→14:27)
[2021-02-23] MEDS: SOLU-MEDROL IV SCH ×2 (06:03→14:54)
[2021-02-23] MEDS: HUMALOG SQ SCH ×2 (08:04→11:56)
[2021-02-23] MEDS: MAG-OX PO SCH (08:08)
[2021-02-23] MEDS ORDERED: HYDROCHLOROTHIAZIDE PO SCH (09:00)
[2021-02-23] MEDS ORDERED: ASPIRIN EC PO SCH (09:00)
[2021-02-23] MEDS ORDERED: VITAMIN D PO SCH (09:00)
[2021-02-23] MEDS ORDERED: COZAAR PO SCH (09:00)
[2021-02-23] MEDS ORDERED: TOPROL XL PO SCH (09:00)
[2021-02-23] MEDS ORDERED: PROTONIX PO SCH (09:00)
[2021-02-23] MEDS ORDERED: AMOX1TAB63 PO (11:52)
[2021-02-23] MEDS ORDERED: PRED20TA PO (11:52)
--- NOTE | 2021-02-23 13:36 | DSH ---
DATE OF DISCHARGE: 02/23/2021 She is on OP23 admission because she stayed for less than 2 days. FINAL DIAGNOSES: Postop status. 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 Please refer to my history and physical to the point of my impression. HOSPITAL COURSE: The patient is a 75-year-old female who was admitted in the hospital last week for carotid tumor surgery on the left side. Dr. Pelaez did the surgery. Postoperatively, she became hypotensive. She had cough, phlegm, shortness of breath and classic manifestations of aspiration, but she was not given any antibiotics and she got worse over the weekend and was having nausea, abdominal pain, some degree of diarrhea and with significant cough and thick sputum production with localized finding of coarse rales in the left lung, was admitted, started on Zosyn and Zithromax and steroids and significant improvement is noted on 02/23/2021. Lungs are much improved, air entry is improved. She has some mild leukocytosis of 11.3 and her blood sugar went up to 363 because of steroids. At the present time, her biochemical data is all normal, will be dismissed on Augmentin 875 mg twice a day for 5 days and prednisone 10 mg daily for 3 days and incentive spirometry and Tylenol 1 g at bedtime, allopurinol 50 mg once a day, vitamin C 500 mg daily, aspirin 81 mg once a day, vitamin D3 5000 units daily and vitamin B12 and glimepiride 2 mg once a day and she is on Vascepa 2 grams daily, Levothroid 25 mcg once a day, losartan HCT 100/12.5 half tablet daily, magnesium oxide 400 mg twice a day, metformin 500 mg twice a day, Protonix 40 mg once a day, Crestor 10 mg once a day and she will get her antibiotics through the day and will be dismissed in the evening and will see Dr. Keena Armstrong in the office next week. Laxmichand MD Patti DR: WESTLEY/krunal JOB# [id number]
--- NOTE | 2021-02-23 13:36 | HPH ---
ADMIT DATE: 02/22/2021 CHIEF COMPLAINT: Cough, phlegm, shortness of breath, chills, postop status, probably aspiration pneumonia. HISTORY OF PRESENT ILLNESS: The patient is a 75-year-old female who last weekend had left carotid tumor surgery by Dr. Saavedra and postoperatively, she became hypotensive and was having cough, phlegm, shortness of breath, was sent home and she came in with all of these symptoms of chills and was noted to have localized finding in the left lung with coarse rales and was short of breath with accessory muscles of respirations working, admitted with diagnosis of aspiration pneumonia for further evaluation and management. See the office note for the detail. ALLERGIES: None known. MEDICATIONS: She is on allopurinol 100 mg once a day, losartan HCT 100/12.5 half tablet daily, metoprolol 25 mg daily, zinc 220 mg once a day, vitamin D3 2000 units daily, vitamin C 1 g daily, Vascepa 2 g daily, glimepiride 2 mg daily, magnesium oxide 400 mg twice a day, Protonix 40 mg once a day, vitamin B12 5000 mcg sublingually, Crestor 10 mg once a day, metformin 500 mg twice a day, aspirin 81 mg once a day, vitamin D3 4000 units daily. 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 See office notes for the details. SOCIAL HISTORY: Nonsmoker, no ethanol abuse. FAMILY HISTORY: His mother had heart problems, bypass and stroke in father. She also was hypertensive. PAST SURGICAL HISTORY: Hysterectomy, bladder suspension, cholecystectomy for a large stone in 2018, pacer implanted in 11/2020, left carotid tumor operation. REVIEW OF SYSTEMS: Cough, phlegm, shortness of breath, chills and thick sputum. PHYSICAL EXAMINATION: GENERAL: She was alert, awake, oriented, was having significant shortness of breath. VITAL SIGNS: Temperature was normal, actually was subnormal, [], BMI 25.1. Blood pressure 170/90, pulse was 80, respirations 18, and saturation was 90-93%. She does go down to 91% on walking, at home the saturation is 85% in the night. HEENT: Unremarkable. Recent surgical trauma site on the left carotid artery with bruising following the surgery. Strained bilateral carotid bruits, more so on the right side. LUNGS: Coarse rales in the left lung base of significant degree with decreased air entry. HEART: Sounds S1 and S2 normal. ABDOMEN: Soft, nontender. EXTREMITIES: Distal pulses fairly well felt. NEUROLOGIC: No focal neuro deficit is documented. LABORATORY DATA: Showed mild leukocytosis. COVID was negative. IMPRESSION: Aspiration pneumonia, postop status. PLAN: At this time, admit the patient. We will start her on steroids and Zosyn and clinical followup. Kalyn Armstrong MD DR: WESTLEY/krunal JOB# [id number]
--- NOTE | 2021-02-23 16:47 | NUR ---
DISCHARGE PT WAS GIVEN DISCHARGE MATERIALS. PT WAS EDUCATED ON NEW MEDICATIONS AND SIDE EFFECTS OF MEDICATIONS, USE OF INCENTIVE SPIROMETER, AND S/S OF WORSENING PNEUMONIA. PT VERBALIZED UNDERSTANDING. IV WAS REMOVED ASEPTIC TECHNIQUE, CATHETER WAS INTACT. PT WHEELED OFF OF UNIT BY STAFF. RELINQUISHED CARE AT THIS TIME.
== END 2021-02-23 16:30 | disposition home or self-care (01) ==
LOC: MS 16:51 → UNDOADMIN 16:51 → INTOOBSV 16:51 → UNDODISIN 02-23 16:30
PROVIDERS: ADMIT Specialist; ATTEND Specialist
DX: J69.0 Pneumonitis due to inhalation of food and vomit (principal); Z20.822 Contact with and (suspected) exposure to COVID-19; I13.0 Hypertensive heart and chronic kidney disease with heart failure and stage 1 through stage 4 chronic kidney disease, or unspecified chronic kidney disease; E11.22 Type 2 diabetes mellitus with diabetic chronic kidney disease; I50.32 Chronic diastolic (congestive) heart failure; N18.9 Chronic kidney disease, unspecified; I95.81 Postprocedural hypotension; K21.9 Gastro-esophageal reflux disease without esophagitis; Z86.16 Personal history of COVID-19; E78.5 Hyperlipidemia, unspecified; Z79.82 Long term (current) use of aspirin; Z79.84 Long term (current) use of oral hypoglycemic drugs; Z90.710 Acquired absence of both cervix and uterus; Z79.899 Other long term (current) drug therapy; Z79.890 Hormone replacement therapy; Z87.01 Personal history of pneumonia (recurrent)
CPT/HCPCS: 36415; 36569; 36600; 71046; 80053; 82803; 82948 ×2; 83036; 83605; 83735; 84145; 85025; 85379; 86140; 87040; 87070; 87205; 87633; 94640 ×2; 96361; 96365; 96366; 96367; 96375; 96376; G0378 ×2; J1815; J2543; J2930 ×2; J3010; J7050 ×3; J0456

== ENCOUNTER → 2021-03-09 | Outpatient (CLI) | payer MEDICARE, OTHER ==
[~2021-03-09] MED LIST changes: +AMOX1TAB63 PO; +ASCO500C9 PO; +CYAN25002 SL; +PRED20TA PO
[2021-03-09 11:48] LABS: BILIRUBIN,URINE NEGATIVE (NEGATIVE); UA COLOR YELLOW
[2021-03-09 11:49] LABS: UROBILINOGEN,URINE 0.2 E.U./dL (0.2)
== END | disposition home or self-care (01) ==
LOC: LAB 11:25
PROVIDERS: ATTEND Specialist
DX: R39.11 Hesitancy of micturition (principal); R10.9 Unspecified abdominal pain
CPT/HCPCS: 81000; 81003; 87077; 87086; 87186

== ENCOUNTER → 2021-03-29 | Outpatient (CLI) | payer MEDICARE, OTHER ==
[2021-03-29 17:20] LABS: BILIRUBIN,URINE NEGATIVE (NEGATIVE); UA COLOR YELLOW; UROBILINOGEN,URINE 0.2 E.U./dL (0.2)
== END | disposition home or self-care (01) ==
LOC: LAB 16:56
PROVIDERS: ATTEND Specialist
DX: R35.0 Frequency of micturition (principal); R52 Pain, unspecified
CPT/HCPCS: 81000; 81003; 87077; 87086; 87186

== ENCOUNTER → 2021-04-14 | Outpatient (CLI) | payer MEDICARE, OTHER ==
[2021-04-14 11:59] LABS: BILIRUBIN,URINE NEGATIVE (NEGATIVE); UA COLOR YELLOW
[2021-04-14 12:00] LABS: UROBILINOGEN,URINE 0.2 E.U./dL (0.2)
== END | disposition home or self-care (01) ==
LOC: LAB 11:34
PROVIDERS: ATTEND Specialist
DX: N39.0 Urinary tract infection, site not specified (principal); E11.9 Type 2 diabetes mellitus without complications; Z87.448 Personal history of other diseases of urinary system
CPT/HCPCS: 81003

== ENCOUNTER → 2021-05-03 | Outpatient (CLI) | payer MEDICARE, OTHER ==
[2021-05-03 12:48] LABS: BILIRUBIN,URINE NEGATIVE (NEGATIVE); UA COLOR YELLOW; UROBILINOGEN,URINE 0.2 E.U./dL (0.2)
== END | disposition home or self-care (01) ==
LOC: LAB 12:12
PROVIDERS: ATTEND Specialist
DX: R39.11 Hesitancy of micturition (principal)
CPT/HCPCS: 81001; 87077; 87086; 87186